=== PATIENT | female | born 1975 ===

== ENCOUNTER 2023-12-13 16:18 | Outpatient (REF) | payer OTHER, SELFPAY ==
[2023-12-13 21:24] LABS: Abs Immature Grans 0.02 10^3/uL (0.0-0.06); Absolute Basophil Count 0.07 10^3/uL (0.0-0.2); Absolute Eosinophil Count 0.21 10^3/uL (0.0-0.7); Absolute Lymphocyte Count 3.12 10^3/uL (1.2-3.4); Absolute Monocyte Count 0.49 10^3/uL (0.1-0.8); Absolute Neutrophil Count 3.71 10^3/uL (1.2-6.7); Basophils % 0.9; Eosinophils % 2.8; HCT 43.3 % (36.0-46.0); HGB 14.1 g/dL (11.2-15.7); Immature Grans % 0.3; Lymphocytes % 40.9; MCH 29.6 pg (27.0-33.0); MCHC 32.6 % (32.0-36.0); MCV 91 fL (80-95); MPV 10.8 fL (8.0-11.0); Monocytes % 6.4; Neutrophils % 48.7; Platelet Count 255 10^3/uL (130-400); RBC 4.76 10^6/uL (3.93-5.22); RDW 12.4 % (11.7-14.6); RDW-SD 41.7 fL; WBC 7.62 10^3/uL (4.4-10.8)
[2023-12-13 21:40] LABS: Calculated LDL 133 mg/dL (<100); Cholesterol 222 mg/dL (<200); HDL Cholesterol 73 mg/dL (40-60); Triglyceride 84 mg/dL (<150)
[2023-12-13 21:52] LABS: ALT 26 U/L (14-59); AST 21 U/L (15-37); Albumin 4.1 g/dL (3.4-5.0); Alkaline Phosphatase 89 U/L (46-116); Anion Gap 8.9 mmol/L (3-11); BUN 16 mg/dL (7-18); Bilirubin, Total 0.5 mg/dL (0.2-1.0); CO2 28.1 mmol/L (21.0-32.0); Calcium 9.6 mg/dL (8.5-10.1); Calculated LDL 123 mg/dL (<100); Chloride 105 mmol/L (98-107); Cholesterol 209 mg/dL (<200); Estimated GFR 68.63 (mL/min/1.73m2); Glucose 86 mg/dL (74-106); HDL Cholesterol 70 mg/dL (40-60); Potassium 3.7 mmol/L (3.5-5.1); Sodium 142 mmol/L (136-145); Total Protein 8.6 g/dL (6.4-8.2); Triglyceride 82 mg/dL (<150)
[2023-12-13 22:04] LABS: Vitamin D 25 Total 22.5 ng/mL (30-100)
== END 2023-12-13 16:19 | disposition home or self-care (01) ==
LOC: NCHCN 16:18
PROVIDERS: Referring Provider Family Medicine; Visit Provider Family Medicine
DX: E55.9 Vitamin D deficiency, unspecified (principal); E61.2 Magnesium deficiency; R53.83 Other fatigue; R79.89 Other specified abnormal findings of blood chemistry; Z90.5 Acquired absence of kidney; Z52.4 Kidney donor
CPT/HCPCS: 80053; 80061; 82306; 83735; 84443; 85025

== ENCOUNTER 2024-12-24 15:11 | Outpatient (REF) | payer OTHER, SELFPAY ==
--- NOTE | 2024-12-24 14:31 | PAPFT_PTH ---
PATIENT: Amanda Baker LOC: [facility]#:[id number] AGE/SX: 49/F ROOM: RE12/24/[address]: Hue Worthington : 1975 BED: DIS: 12/24/2024 SPEC #: [id number] RECD: 12/25/24 12:42 STATUS: MICK REQ #: [id number] EZEKIEL: 12/24/24 14:[address]: Hue Worthington DEPT: [facility] Cytology RECD BY: Kristy Alexander ENTERED: 12/25/24 12:43 SP TYPE: PAPFT OTHR DR: Unknown,Unknown Tissues: 1 - CX/ENDOCX FOR PAP SMEARS Procedures: PAP THIN PREP/[facility] Screening HPV DNA PROBE Comments: [id number] (HPV 16 & 18/45)
[2024-12-24 22:00] LABS: Anion Gap 8.1 mmol/L (3-11); BUN 17 mg/dL (7-18); CO2 29.9 mmol/L (21.0-32.0); CREATININE 0.9 mg/dL (0.55-1.02); Calcium 9.3 mg/dL (8.5-10.1); Chloride 106 mmol/L (98-107); Glucose 85 mg/dL (74-106); Potassium 3.8 mmol/L (3.5-5.1); Sodium 144 mmol/L (136-145); Vitamin D 25 Total 43 ng/mL (30-100)
== END 2024-12-24 15:12 | disposition home or self-care (01) ==
LOC: NCHCN 15:11
PROVIDERS: Visit Provider Family Medicine
DX: Z90.5 Acquired absence of kidney (principal); E55.9 Vitamin D deficiency, unspecified; Z11.51 Encounter for screening for human papillomavirus (HPV); Z01.419 Encounter for gynecological examination (general) (routine) without abnormal findings
CPT/HCPCS: 80048; 82306; 88142; 87624